=== PATIENT | female | born 1965 | race Caucasian/White ===

== ENCOUNTER → 2019-01-28 10:45 | Outpatient (CLI) | payer OTHER, MEDICAID, SELFPAY ==
[2019-01-31 11:14] LABS: 18 kD IgG Band Nonreactive; 23 kD IgG Band Nonreactive; 28 kD IgG Band Nonreactive; 30 kD IgG Band Nonreactive; 39 kD IgG Band Nonreactive; 41 kD IgG Bands Reactive; 45 kD IgG Band Nonreactive; 58 kD IgG Band Reactive; 66 kD IgG Band Reactive; 93 kD IgG Bands Nonreactive
== END ==
PROVIDERS: PCP Student in an Organized Health Care Education/Training Program; Visit Provider Student in an Organized Health Care Education/Training Program
DX: T14.8XXA Other injury of unspecified body region, initial encounter (principal); W57.XXXA Bitten or stung by nonvenomous insect and other nonvenomous arthropods, initial encounter
CPT/HCPCS: 36415; 86618

== ENCOUNTER → 2019-09-30 10:16 | Outpatient (CLI) | payer OTHER, MEDICAID, SELFPAY ==
--- NOTE | 2019-09-30 | DI.RAD.S_ITS ---
PROCEDURE: FL BARIUM SWALLOW INDICATIONS: Dysphagia, unspecified COMPARISON: None. FINDINGS: Function: There is normal esophageal peristalsis. No elicited gastroesophageal reflux with provocative maneuvers. There is normal transit of a calibrated barium tablet through the esophagus into the stomach. Morphology: Air-contrast images demonstrate normal mucosal morphology. Single contrast views show no esophageal strictures, extrinsic mass effects, or diverticula. There is a small hiatal hernia. Limited images of the stomach demonstrate normal appearance. IMPRESSION: 1. No esophageal stricture or diverticulum. 2. Small hiatal hernia. 3. No gastroesophageal reflux elicited. Dictated by: Steven Garcia M.D. on 09/30/2019 at 13:00 Approved by: Steven Garcia M.D. on 09/30/2019 at 13:02
== END ==
PROVIDERS: PCP Student in an Organized Health Care Education/Training Program; Referring Provider Student in an Organized Health Care Education/Training Program; Visit Provider Student in an Organized Health Care Education/Training Program
DX: R13.10 Dysphagia, unspecified (principal); K44.9 Diaphragmatic hernia without obstruction or gangrene
CPT/HCPCS: 74220